=== PATIENT | male | born 1985 | race Caucasian/White ===

== ENCOUNTER 2019-09-29 06:54 | Emergency (ER) | payer SELFPAY ==
[~2019-09-29] VITALS: Ht 172.7 cm; Wt 98.0 kg
[2019-09-29] MEDS ORDERED: KETOROLAC 30MG/ML VIAL IM ONE (07:30)
[2019-09-29] MEDS ORDERED: ACETAMINOPHEN 325MG TABLET PO ONE (07:30)
[2019-09-29 10:18] VITALS: BP 113/62
== END 2019-09-29 10:19 | disposition home or self-care (01) ==
LOC: ER 07:09
DX: S20.211A Contusion of right front wall of thorax, initial encounter (principal); W22.8XXA Striking against or struck by other objects, initial encounter; R03.0 Elevated blood-pressure reading, without diagnosis of hypertension; Y93.89 Activity, other specified; Y92.89 Other specified places as the place of occurrence of the external cause
CPT/HCPCS: 71100; 96372; 99283; J1885